=== PATIENT | male | born 1965 | race Caucasian/White ===

== ENCOUNTER 2019-07-09 09:14 | Day surgery (SDC) | payer BC ==
--- OUTSIDE RECORDS SUMMARY | 2019-07-09 09:17 | XMS REPORT ---
:1965 Author Organization [employer] Care Team Providers Name Role Phone Brennen Jacinto Provider Role Unavailable Allergies, Adverse Reactions, Alerts Substance Reaction Event Type N.K.D.A. Info Not Available Non Drug Allergy Problems Problem Type Condition Code Onset Dates Condition Status Assessment Umbilical hernia without obstruction K42.9 Active and without gangrene Medications No Known Medications Results No Known Results Summary Purpose [facility] Submission
[2019-07-09] MEDS ORDERED: Ringers Lactate 1,000 ML IV ONE (09:43)
[2019-07-09] MEDS ORDERED: CEFAZOLIN/SWI 1gm 1 GM/10 ML SYR ONE (09:43)
[2019-07-09] MEDS ORDERED: BUPIVACA 0.5%/EPI 0.0005%/PF 10 ML VIAL ONE (10:19)
[2019-07-09] MEDS ORDERED: MIDAZOLAM HCL 2 MG/2 ML INJ ONE (10:37)
[2019-07-09] MEDS ORDERED: PROPOFOL 200 MG/20 ML VIAL IV ONE (11:00)
[2019-07-09] MEDS ORDERED: LIDOCAINE 1% MPF 5 ML VIAL ONE (11:00)
[2019-07-09] MEDS ORDERED: FENTANYL CITR 100 MCG/2 ML ONE (11:00)
[2019-07-09] MEDS ORDERED: KETOROLAC 30 MG/ML INJ ONE (11:31)
[2019-07-09] MEDS ORDERED: ONDANSETRON 4 MG/2 ML VIAL ONE (11:32)
[2019-07-09] MEDS ORDERED: MEPERIDINE HCL 25 MG/0.5 ML ONE (11:32)
--- NOTE | 2019-07-09 11:39 | P.OP ---
Preoperative diagnosis: Umbilical Hernia Postoperative diagnosis: Umbilical Hernia Primary procedure: Open Umbilical Hernia Repair with Mesh Anesthesia: GETA + Local Estimated blood loss: <5cc Specimen: Preperitoneal fat Findings: 1cm x 1cm Umbilical Hernia Complications: None Implants: 4.3cm Bard Ventralite Mesh Transferred to: Recovery Room Condition: Good
[2019-07-09] MEDS: HYDROMORPHONE HCL 1 MG/ML INJ ONE ×2 (12:00→12:05)
[2019-07-09] MEDS: HYDROMORPHONE HCL 2 MG/ML inj ONE ×2 (12:11→12:28)
[2019-07-09] MEDS ORDERED: HYDROCODONE/APAP 5/325 MG TAB ONE (13:39)
[2019-07-09] MEDS ORDERED: HYDROCODONE/APAP 5/325 MG TAB PO ONE (13:40)
--- NOTE | 2019-07-09 22:39 | OP ---
Date of Procedure: 07/09/2019 Surgeon: Brennen Jacinto MD, Preoperative Diagnosis: Umbilical hernia. Postoperative Diagnosis: Umbilical hernia. Procedure Performed: Open umbilical hernia repair with mesh. Anesthesia: General endotracheal plus local with 0.25% Marcaine with epinephrine. Estimated Blood Loss: Less than 5 cc. Specimen: Preperitoneal fat. Findings: 1 cm x 1 cm umbilical hernia defect. Complications: None. Implants: 4.3 cm Bard Ventralight mesh with straps system. Disposition: Transferred to recovery room in good condition. Procedure In Detail: After informed consent was obtained, patient was brought to the operating room, prepped and draped in the usual sterile fashion. After appropriate anesthesia was obtained, an infr aumbilical curvilinear incision was made in the infraumbilical position. Dissection continued down t o the hernia defect was found to be approximately 1 cm x 1 cm in the umbilical position. This hernia sac was grasped, elevated, and entered with electrocautery. Preperitoneal fat was noted to be emana ting from this area. This was dissected free from the hernia sac and contents and sent off for patho logic examination. The hernia sac was then reduced in normal anatomic position. The preperitoneal s pace was swept with a finger sweep to ensure a good landing zone and the 4.3 cm round Bard Ventraligh t ST mesh strap system was brought into the field hydrated appropriately, and placed in the preperito daniella space after parachuting it through the fascial edges of the hernia defect with a 0 PDS suture in an interrupted fashion. The hernia mesh was then parachuted in the preperitoneal space and found to be quite flat and even. This was then secured using the above 2 sutures and the fascial defect was closed securing it to the strap with the 0 PDS in a mattress suture with good approximation of tissue s. The area was copiously irrigated. No additional hemostatic maneuvers were required and the deep dermal layer was closed with an interrupted 3-0 Vicryl and the skin was closed with a 4-0 Monocryl in a running fashion. Dermabond was placed over top. Patient tolerated the procedure well without george dence of complication and transferred to the PACU in good condition. All counts were correct at the end of the case. TRESSA/EMILY Voice ID: [id number] Report ID: [id number]
== END 2019-07-09 13:59 | disposition home or self-care (01) ==
LOC: OR 09:14
PROVIDERS: ATTEND Surgery
PROC: 0WUF0JZ Supplement Abdominal Wall with Synthetic Substitute, Open Approach (ICD-10-PCS; principal; 2019-07-09 11:15)
DX: K42.9 Umbilical hernia without obstruction or gangrene (principal); K21.9 Gastro-esophageal reflux disease without esophagitis; F17.200 Nicotine dependence, unspecified, uncomplicated
CPT/HCPCS: 88302; 49585; J2704; J2250; J1170 ×2; J3010; J2175; J0690; J2405

== ENCOUNTER 2019-10-02 07:12 | Day surgery (SDC) | payer BC ==
[2019-10-02] MEDS ORDERED: Ringers Lactate 1,000 ML IV ONE (07:36)
[2019-10-02] MEDS ORDERED: EPHEDRINE SULF 50 MG/ML VIAL ONE (07:44)
[2019-10-02] MEDS ORDERED: PROPOFOL 200 MG/20 ML VIAL IV ONE ×2 (07:44→07:50)
[2019-10-02] MEDS ORDERED: Phenylephrine HCl 10 MG/ML 1 ML VIAL ONE (07:45)
[2019-10-02] MEDS ORDERED: LIDOCAINE 1% MPF 5 ML VIAL ONE (07:46)
[2019-10-02] MEDS ORDERED: LABETALOL 20 MG/4ML SYRINGE IV ONE (07:46)
[2019-10-02] MEDS ORDERED: GLYCOPYRROLATE 0.2 MG/ML SYR ONE (07:46)
[2019-10-02] MEDS ORDERED: ATROPINE SULFATE 1 MG/ML INJ ONE (07:46)
[2019-10-02] MEDS ORDERED: SUCCINYLCHOLINE 20 MG/ML (10 ML) IV ONE (07:57)
--- NOTE | 2019-10-02 08:55 | ENDO RPT ---
[address], [address] COLONOSCOPY PROCEDURE REPORT EXAM DATE: 10/02/2019 PATIENT NAME: Lui Aguirre MR #: [id number] BIRTHDATE: 1965 ATTENDING: Brennen Jacinto DR STATUS: outpatient LUGGAGE ATTENDANT: Monica Prince RN, Rocio Do RN, and Mac [facility] INDICATIONS: The patient is a 54 yr old Male here for a colonoscopy due to colon cancer screening PROCEDURE PERFORMED: Colonoscopy with biopsy - cold polypectomy MEDICATIONS: Per Anesthesia. ESTIMATED BLOOD LOSS: None CONSENT: The patient understands the risks and benefits of the procedure and understands that these risks include, but are not limited to: sedation, allergic reaction, infection, perforation and/or bleeding. Alternative means of evaluation and treatment include, among others: physical exam, x-rays, and/or surgical intervention. The patient elects to proceed with this endoscopic procedure. DESCRIPTION OF PROCEDURE: During intra-op preparation period all mechanical medical equipment was checked for proper function. Hand hygiene and appropriate measures for infection prevention was taken. Procedure, possible complications, alternatives including, but not limited to possibility of bleeding, perforation, tear, infection, sepsis, need for surgery, need for blood transfusion, were explained to the patient. After the risks, benefits and alternatives of the procedure were thoroughly explained, Informed consent was verified, confirmed and timeout was successfully executed by the treatment team. The patient was placed in the left lateral position. A digital rectal exam was performed and revealed internal hemorrhoids. After appropriate level of anesthesia, the scope was passed. The EC-[id number] ([id number]) endoscope was introduced through the anus and advanced to the cecum, which was identified by both the appendix and ileocecal valve. The quality of the prep was fair. The instrument was then slowly withdrawn as the colon was fully examined. Scope withdrawal time was 10 minutes. COLON FINDINGS: Mild diverticulosis was noted in the sigmoid colon. No bleeding was noted from the diverticulosis. Two small smooth sessile polyps with friable surfaces and mucous caps were found in the rectum. A polypectomy was performed with a cold snare. The resection was complete, the polyp tissue was completely retrieved and sent to histology. A small polypoid shaped pedunculated polyp was found at the appendiceal orifice. A polypectomy was performed with cold forceps. The resection was complete, the polyp tissue was completely retrieved and sent to histology. Small internal hemorrhoids were found. Retroflexed views revealed no abnormalities. The scope was then completely withdrawn from the patient and the procedure terminated. ADVERSE EVENTS: There were no complications. IMPRESSIONS: 1. Mild diverticulosis was noted in the sigmoid colon 2. Two small sessile polyps were found in the rectum; polypectomy was performed in a piecemeal fashion with a cold snare 3. Small pedunculated polyp was found at the appendiceal orifice; polypectomy was performed with cold forceps 4. Small internal hemorrhoids RECOMMENDATIONS: 1. avoid NSAIDS for 2 weeks 2. await biopsy results 3. fiber rich diet 4. follow-up: office 2 week(s) 5. Monitor for any evidence of rectal bleeding. 6. increase dietary water 7. hemorrhoidal hygiene RECALL: Return in 3 year(s) for Colonoscopy, pending biopsy results. Pending Biopsy Results Brennen Jacinto DR eSigned: Brennen Jacinto DR 10/02/2019 8:55 AM cc: CPT CODES: ICD9 CODES: PATIENT NAME: Lui Aguirre MR#: [id number]
[2019-10-02 09:37] VITALS: TEMP 97.5
[2019-10-02 09:40] VITALS: BP 136/78; O2SAT 94
--- OUTSIDE RECORDS SUMMARY | 2019-10-05 04:32 | XMS REPORT ---
[...] Medications Results No Known Results Summary Purpose [facility] Submission
--- OUTSIDE RECORDS SUMMARY | 2019-10-05 04:32 | XMS REPORT ---
:1965 Author Organization [employer]Works Care Team Providers Name Role Phone Brennen Jacinto Provider Role Unavailable Allergies, Adverse Reactions, Alerts Substance Reaction Event Type N.K.D.A. Info Not Available Non Drug Allergy Problems Problem Type Condition Code Onset Dates Condition Status Assessment Follow up Z09 Active Medications No Known Medications Results No Known Results Summary Purpose [employer] Submission
== END 2019-10-02 09:30 | disposition home or self-care (01) ==
LOC: OR 07:12
PROVIDERS: ATTEND Surgery
PROC: 0DBE8ZX Excision of Large Intestine, Via Natural or Artificial Opening Endoscopic, Diagnostic (ICD-10-PCS; 2019-10-02)
PROC: 0DBP8ZX Excision of Rectum, Via Natural or Artificial Opening Endoscopic, Diagnostic (ICD-10-PCS; principal; 2019-10-02 08:30)
DX: Z12.11 Encounter for screening for malignant neoplasm of colon (principal); K62.1 Rectal polyp; K63.5 Polyp of colon; K57.30 Diverticulosis of large intestine without perforation or abscess without bleeding; K64.8 Other hemorrhoids; K21.9 Gastro-esophageal reflux disease without esophagitis; G47.33 Obstructive sleep apnea (adult) (pediatric); Z72.0 Tobacco use
CPT/HCPCS: 88305; 45380; J2704 ×2; J0330; J2370; J7120; J0461

== ENCOUNTER 2024-12-16 10:20 | Emergency (ER) | payer OTHER ==
[2024-12-16] MEDS ORDERED: LORAZEPAM 1 MG TABLET ONE (11:09)
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
--- NOTE | 2024-12-16 11:52 | ER ---
Nurse's Notes [facility] Name: Lui Aguirre Age: 59 yrs Sex: Male : 1965 Arrival Date: 12/16/2024 Time: 10:20 Bed 11 Private MD: Diagnosis: Generalized anxiety disorder Presentation: 12/16 10:39 Chief complaint: Patient states: Fixated on past trauma. Stressful work environment. ld1 Increase in anxiety, not sleeping. Denies SI \\T\\ HI. Coronavirus screen: At this time, the client does not indicate any symptoms associated with coronavirus-19. Ebola Screen: No symptoms or risks identified at this time. 10:39 Method Of Arrival: Ambulatory ld1 10:43 Initial Sepsis Screen: Does the patient meet any 2 criteria? No. Patient's initial ld1 sepsis screen is negative. Does the patient have a suspected source of infection? No. Patient's initial sepsis screen is negative. Risk Assessment: Do you want to hurt yourself or someone else? Patient reports no desire to harm self or others. Onset of symptoms was December 16, 2024. 10:43 Acuity: CHAPARRO 3 ld1 Triage Assessment: 10:38 General: Appears in no apparent distress. comfortable, Behavior is calm, cooperative, ld1 appropriate for age. Pain: Denies pain. EENT: No signs and/or symptoms were reported regarding the EENT system. Neuro: Level of Consciousness is awake, alert, obeys commands, Oriented to person, place, time, situation. Cardiovascular: Capillary refill < 3 seconds Patient's skin is warm and dry. Respiratory: Airway is patent Respiratory effort is even, unlabored. GI: Abdomen is round non-distended. : No signs and/or symptoms were reported regarding the genitourinary system. Derm: No signs and/or symptoms reported regarding the dermatologic system. Musculoskeletal: No signs and/or symptoms reported regarding the musculoskeletal system. Historical: - Allergies: 10:40 No Known Allergies; ld1 - Home Meds: 10:41 atorvastatin 20 mg oral tablet [Active]; losartan 50 mg oral tablet [Active]; Plavix 75 ld1 mg Oral tablet [Active]; - PMHx: 10:40 Hypercholesterolemia; ld1 - PSHx: 10:40 None; ld1 - Immunization history:: Adult Immunizations up to date. - Infectious Disease History:: Denies. - Social history:: Smoking status: . Screenin:11 [facility] ED Fall Risk Assessment (Adult) History of falling in the last 3 months, ll1 including since admission No falls in past 3 months (0 pts) Confusion or Disorientation No (0 pts) Intoxicated or Sedated No (0 pts) Impaired Gait No (0 pts) Mobility Assist Device Used No (0 pt) Altered Elimination No (0 pt) Score/Fall Risk Level 0 - 2 = Low Risk Maintained a safe environment, Hourly rounding (assess needs \\T\\ fall precautionary measures) done. Abuse screen: Denies threats or abuse. Nutritional screening: No deficits noted. Tuberculosis screening: No symptoms or risk factors identified. Assessment: 11:11 Reassessment: No changes from previously documented assessment. Patient and/or family ll1 updated on plan of care and expected duration. Pain level reassessed. Patient is alert, oriented x 3, equal unlabored respirations, skin warm/dry/pink. 12:10 Reassessment: No changes from previously documented assessment. Patient and/or family ll1 updated on plan of care and expected duration. Pain level reassessed. Patient is alert, oriented x 3, equal unlabored respirations, skin warm/dry/pink. Psych: 12:11 Circle Suicide Severity Screening: In the past month, have you wished you were ll1 or wished you could go to sleep and not wake up? Patient responds "No." "In the past month, have you actually had any thoughts of killing yourself?" Patient responds "no." "In your lifetime, have you ever done anything, started to do anything, or prepared to do anything to end your life?" Patient responds "no.". Subjective: Delusions are denied. Objective: Speech is normal. Interventions: n/a. Safety Checks: Pt denies substance abuse. 12:11 Commitment: n/a. ll1 Vital Signs: 10:39 Pulse 71; Resp 18; Pulse Ox 96% on R/A; ld1 10:43 BP 113 / 87; Resp 18; Temp 98.1(TE); Pulse Ox 100% on R/A; Weight 72.57 kg; Height 5 ld1 ft. 5 in. ; Pain 0/10; 12:10 BP 121 / 81; Pulse 71; Resp 17; Pulse Ox 100% on R/A; ll1 10:43 Body Mass Index 26.63 (72.57 kg, 165.1 cm) ld1 10:43 Pain Scale: Adult ld1 ED Course: 10:23 Patient arrived in ED. mr 10:38 Gregory Azar DO is Attending Physician. ms3 10:43 Triage completed. ld1 10:43 Arm band placed on right wrist. ld1 11:06 Vidal Betancur, RN is Primary Nurse. ll1 11:51 Daniel Bell MD is Referral Physician. ms3 12:11 No provider procedures requiring assistance completed. Patient did not have IV access ll1 during this emergency room visit. 12:14 Patient has correct armband on for positive identification. Provided Education on: ER ll1 procedures and process. Administered Medications: 11:11 Drug: LORazepam PO 1 mg PO once Route: PO; ll1 12:10 Follow up: Response: No adverse reaction; Anxiety decreased; RASS: Drowsy (-1) ll1 Medication: 12:15 VIS not applicable for this client. ll1 Outcome: 11:51 Discharge ordered by . ms3 12:14 Discharged to home ll1 12:14 Discharged to home via wheelchair, with friend, 12:14 Condition: stable 12:14 Discharge instructions given to patient, friend, Instructed on discharge instructions, follow up and referral plans. no drinking with medication, no driving heavy equipment, medication usage, Demonstrated understanding of instructions, follow-up care, medications, Prescriptions given X 1, 12:15 Patient left the ED. ll1 Signatures: Ellen Guzmán, Reg Reg mr Vidal Betancur RN RN ll1 Gregory Azar DO DO ms3 Rianna Azar RN RN ld1 Corrections: (The following items were deleted from the chart) 10:43 10:40 Home Meds: None; ld1 ld1
[2024-12-16 12:53] VITALS: TEMP 98.1; O2SAT 100
[2024-12-16 12:55] VITALS: BP 121/81
== END 2024-12-16 12:15 | disposition home or self-care (01) ==
LOC: ER 10:20
DX: F41.1 Generalized anxiety disorder (principal)
CPT/HCPCS: 99283